=== PATIENT | male | born 1955 | race Caucasian/White ===

== ENCOUNTER → 2022-11-16 | Outpatient (CLI) | payer MEDICARE ==
[~2022-11-16] MED LIST: OXYACE5T PO; RXOXYACE PO; SULF10OPSA OD
[2022-11-16 13:12] LABS: Albumin/Globulin Ratio 1.2 (0.8-1.8); Bilirubin, Total 0.5 mg/dL (0.1-1.0); Bun/Creatinine Ratio 18.7 (12.0-20.0); Calcium, Blood 8.7 mg/dL (8.5-10.1); Creatinine, Blood 0.91 mg/dL (0.60-1.20); Globulin, Blood 3.2 g/dL (2.2-4.0); Potassium, Blood 4.4 mmol/L (3.5-5.5); Total Protein, Blood 7.2 g/dL (6.4-8.2)
== END | disposition home or self-care (01) ==
LOC: LAB SHORT 12:56 → LAB 12:56
PROVIDERS: Physician Assistant
DX: M10.9 Gout, unspecified (principal)
CPT/HCPCS: 80053